=== PATIENT | female | born 1960 | race Caucasian/White ===

== ENCOUNTER 2019-06-03 14:17 | Emergency (ER) | payer OTHER ==
[2019-06-03 14:25] VITALS: RESP 18; TEMP 97.6
[2019-06-03] MEDS ORDERED: MORPHINE SULFATE 4 MG/ML SYRINGE IVP STA (14:48)
[2019-06-03] MEDS ORDERED: SODIUM CHLORIDE 0.9% 500 ML 500 ML IV ONE (14:48)
--- NOTE | 2019-06-03 14:57 | ED ---
Fall HPI - General Chief Complaint: Fall Stated Complaint: Fall Time Seen by Provider: 06/03/19 14:30 Source: patient Mode of arrival: ambulatory - History of Present Illness Initial Comments: 58-year-old female presenting today for chief complaint of fall. Patient states a week ago while moving she was carrying stuff down steps when she misstepped sliding down on her back she states she mostly his the back, flank right sided. Patient states it hurts with deep inspiration. Patient states she has brusising on her back. She stated th pain wraps around to the abdomen, making her feel bloated. Denies abdominal bruising. Denies pain in ribs prior to fall. Denies substernal or anterior chest pain. Patient admits to low back pain she doesn't loss bowel bladder control urinary retention she denies any numbness paresthesias of the lower extremities or weakness. Patient states she has been able to ambulate and walk she states most the pain has been in the right posterior ribs. She states she can order tolerate this pain. Patient denies any injury to head or neck she denies any headache visual changes nausea or vomiting. Patient denies any diarrhea melena or hematochezia. Patient denies hematuria dysuria urgency or frequency. Remaining review of system negative den ies any other areas of injury including the upper or lower extremities. Upon arrival patient is tearful stating she can no longer tolerate the pain - Related Data Allergies Allergy/AdvReac Type Severity Reaction Status Date / Time No Known Allergies Allergy Verified 06/03/19 14:25 Review of Systems ROS Statement: Those systems with pertinent positive or pertinent negative responses have been documented in the HPI. ROS Other: All systems not noted in ROS Statement are negative. Past Medical History Past Medical History: Cancer Additional Past Medical History / Comment(s): breast ca History of Any Multi-Drug Resistant Organisms: None Reported Past Surgical History: Orthopedic Surgery Additional Past Surgical History / Comment(s): masectomy rt, facial reconstruction Past Psychological History: No Psychological Hx Reported Smoking Status: Current every day smoker Past Alcohol Use History: None Reported Past Drug Use History: Marijuana General Exam - General Exam Comments Initial Comments: General: The patient is awake and alert, appears tearful Eye: Pupils are equal, round and reactive to light, extra-ocular movements are intact. No nystagmus. There is normal conjunctiva bilaterally. No signs of icterus. Ears, nose, mouth and throat: There are moist mucous membranes and no oral lesions. No raccoon no patel sign. Neck: The neck is supple, there is no tenderness or JVD. No midline tenderness to cervical spine. Cardiovascular: There is a regular rate and rhythm. No murmur, rub or gallop is appreciated. Respiratory: Lungs are clear to auscultation, respirations are non-labored, breath sounds are equal. No wheezes, stridor, rales, or rhonchi. Gastrointestinal: [Soft, non-distended, non-tender abdomen without masses or organomegaly noted. There is no rebound or guarding present. No CVA tenderness. Bowel sounds are unremarkable.] Musculoskeletal: Upon inspection of the back there is bruising near mid right side of trunk. There is pain to palpation of ribs under the area of bruising. There is no crepitus. Patient has no midline tenderness of the spine, mostly paravertebral. Normal ROM, no tenderness of the UE and LE b/l including shoulders/hips b/l. Strength 5/5 of the UE and LE b/l no weakness. Sensation intact of the UE and LE including the saddle region, no differences b/l. Radial and DP pulses equal bilaterally 2+. Neurological: A&O x 3. CN II-XII intact, There are no obvious motor or sensory deficits. Coordination appears grossly intact. Speech is normal. Skin: Skin is warm and dry and no rashes or lesions are noted. Psychiatric: Cooperative, appropriate mood & affect, normal judgment. Limitations: no limitations Course Vital Signs 06/03/19 14:22 Temperature 97.6 F Pulse Rate 97 Respiratory 18 Rate Blood Pressure 146/96 O2 Sat by Pulse 98 Oximetry Medical Decision Making - Medical Decision Making 58-year-old female presented for follow-up. Patient states she mostly struck her trunk and back. Imaging studies of the chest reveal no obvious lung abnormalities/rib fractures. Pt clinically appears to have rib contusion. Patient has no neurovascular deficits. She denies any injury to head or neck. Patient has no midline tenderness to patient of the spine. Mostly paravertebral. Patient is able to ambulate without difficulty. No history or PE findings consistent with cauda equina. Refused digital rectal exam. Patient pain controlled in ER. Discussed results, she is agreeable to discharge at this time with PCP f/u, provided inceptive spirometer. Discussed importance of return parameters. Pt discharged appearing well. - Lab Data Result diagrams: 06/03/19 15:06 06/03/19 15:06 Lab Results 06/03/19 06/03/19 06/03/19 Range/Units 15:06 15:06 15:06 WBC 7.0 (3.8-10.6) k/uL RBC 4.54 (3.80-5.40) m/uL Hgb 14.0 (11.4-16.0) gm/dL Hct 42.6 (34.0-46.0) % MCV 93.7 (80.0-100.0) fL MCH 30.8 (25.0-35.0) pg MCHC 32.9 (31.0-37.0) g/dL RDW 12.9 (11.5-15.5) % Plt Count 217 (150-450) k/uL Neutrophils % 59 % Lymphocytes % 32 % Monocytes % 5 % Eosinophils % 2 % Basophils % 0 % Neutrophils # 4.1 (1.3-7.7) k/uL Lymphocytes # 2.3 (1.0-4.8) k/uL Monocytes # 0.4 (0-1.0) k/uL Eosinophils # 0.1 (0-0.7) k/uL Basophils # 0.0 (0-0.2) k/uL PT 10.0 (9.0-12.0) sec INR 1.0 (<1.2) APTT 22.3 (22.0-30.0) sec Sodium 135 L (137-145) mmol/L Potassium 4.3 (3.5-5.1) mmol/L Chloride 100 (98-107) mmol/L Carbon Dioxide 28 (22-30) mmol/L Anion Gap 7 mmol/L BUN 14 (7-17) mg/dL Creatinine 0.75 (0.52-1.04) mg/dL Est GFR (CKD-EPI)AfAm >90 (>60 ml/min/1.73 sqM) Est GFR (CKD-EPI)NonAf 87 (>60 ml/min/1.73 sqM) Glucose 161 H (74-99) mg/dL Calcium 10.0 (8.4-10.2) mg/dL Total Bilirubin 0.3 (0.2-1.3) mg/dL AST 42 H (14-36) U/L ALT 37 H (4-34) U/L Alkaline Phosphatase 65 (38-126) U/L Total Protein 8.3 H (6.3-8.2) g/dL Albumin 4.7 (3.5-5.0) g/dL Disposition Clinical Impression: Fall, Rib pain, Bruised rib Disposition: HOME SELF-CARE Condition: Good Instructions (If sedation given, give patient instructions): Fall Prevention for Older Adults (ED), Rib Contusion (ED) Additional Instructions: Please use medication as discussed. Please follow-up with family doctor in the next 2 days.. Please return to emergency room if the symptoms increase or worsen or for any other concerns. Is patient prescribed a controlled substance at d/c from ED?: No Referrals: None,Stated [Primary Care Provider] - 1-2 days [facility] [NON-STAFF] - 1-2 days Time of Disposition: 16:30
[2019-06-03 15:14] LABS: Basophils % (A) 0 %; Eosinophils # (A) 0.1 k/uL (0-0.7); Eosinophils % (A) 2 %; HCT 42.6 % (34.0-46.0); Lymphocytes # (A) 2.3 k/uL (1.0-4.8); Lymphocytes % (A) 32 %; MCH 30.8 pg (25.0-35.0); MCHC 32.9 g/dL (31.0-37.0); MCV 93.7 fL (80.0-100.0); Mean Platelet Volume 7.3; Monocytes # (A) 0.4 k/uL (0-1.0); Monocytes % (A) 5 %; Neutrophils # (A) 4.1 k/uL (1.3-7.7); Neutrophils % (A) 59 %; Platelet Count 217 k/uL (150-450); RBC 4.54 m/uL (3.80-5.40); RDW 12.9 % (11.5-15.5)
[2019-06-03 15:18] LABS: ALT 37 U/L (4-34); AST 42 U/L (14-36); African American GFR (CKD) >90 (>60 ml/min/1.73 sqM); Albumin 4.7 g/dL (3.5-5.0); Alkaline Phosphatase 65 U/L (38-126); Anion Gap 7 mmol/L; Blood Urea Nitrogen 14 mg/dL (7-17); Carbon Dioxide 28 mmol/L (22-30); Chloride 100 mmol/L (98-107); Glucose 161 mg/dL (74-99); Non-African American GFR(CKD) 87 (>60 ml/min/1.73 sqM); Potassium 4.3 mmol/L (3.5-5.1); Sodium 135 mmol/L (137-145); Total Bilirubin 0.3 mg/dL (0.2-1.3); Total Protein 8.3 g/dL (6.3-8.2)
[2019-06-03 15:20] LABS: Partial Thromboplastin Time 22.3 sec (22.0-30.0)
--- NOTE | 2019-06-03 15:36 | XR ---
EXAMINATION TYPE: XR lumbar spine 2 or 3V DATE OF EXAM: 06/03/2019 COMPARISON: None HISTORY: Low back pain, fall TECHNIQUE: Three-view lumbar spine FINDINGS: There 5 lumbar-type vertebral bodies. Pedicles are intact. Disc heights are preserved. Spon dylosis is present. Vascular calcifications within the aorta. Vertebral body heights are preserved. Alignment is normal. IMPRESSION: 1. Mild spondylosis within the lumbar spine. 2. No acute osseous abnormality.
--- NOTE | 2019-06-03 15:56 | CT ---
EXAMINATION TYPE: CT ChestAbdPelvis w con DATE OF EXAM: 06/03/2019 INDICATION: Chest pain after fall injury x2 weeks ago COMPARISON: None CT DLP: 1061 mGycm CONTRAST: Performed without Oral Contrast and with IV Contrast, patient injected with 100 mL of Isovue 300. TECHNIQUE: Axial images at 5 mm thick sections. Reconstructed images in the coronal plane. Delayed images through the kidneys. FINDINGS: CT CHEST: Thoracic aorta appears unremarkable. No dissection or aneurysm is evident. No mediastinal f luid or pericardial effusions are evident. Portion of the thyroid visualized is normal. No suspicious lung nodules or focal infiltrates are present. No enlarged mediastinal or hilar adenopathy is evident. The ascending aorta diameter at the level of the main pulmonary artery is 3.1 cm. The main pulmonary artery diameter at the bifurcation is 2.4 cm. No displaced rib fractures are evident. No pneumothorax is evident. There is a left breast prosthesis . CT ABDOMEN: Liver: Normal Spleen: Normal Pancreas: Normal Adrenal glands: The adrenal glands are normal. Gallbladder: Normal Kidneys: No masses are evident. No hydronephrosis is present. No cysts are present. Delayed images were obtained through the kidneys, which remain unremarkable. Aorta: Vascular calcification is within the aorta. Inferior vena cava: Normal. CT PELVIS: Loops of bowel within the abdomen and pelvis are normal. Loops of bowel are evaluated without ora l contrast limiting their evaluation. Appendix: Normal as visualized. Urinary bladder: Normal. Genitourinary structures: Uterus is normal. Adnexal regions are normal. Osseous structures: No suspicious lytic or sclerotic lesions. Sacroiliac joint degenerative changes are present. Some mild facet degenerative changes present L5-S1 . No displaced fractures are evident. No suspicious compression deformities of the vertebral bodies w ithin the [id number] are evident. No free fluid is within the abdomen or pelvis. No pleural effusions are evident. IMPRESSIONS: 1. No suspicious acute or subacute posttraumatic change is evident.
[2019-06-03] MEDS ORDERED: ACET/COD 300 MG/30 MG STARTER PACK 6 TAB BTL PO STA (16:30)
[2019-06-03 16:44] VITALS: BP 116/72; PULSE 79
== END 2019-06-03 16:43 | disposition home or self-care (01) ==
LOC: EC 14:17
DX: S20.211A Contusion of right front wall of thorax, initial encounter (principal); F17.200 Nicotine dependence, unspecified, uncomplicated; Z85.3 Personal history of malignant neoplasm of breast; Z90.11 Acquired absence of right breast and nipple; W10.9XXA Fall (on) (from) unspecified stairs and steps, initial encounter; Y93.89 Activity, other specified
CPT/HCPCS: 36415; 80053; 85025; 85610; 85730; 72100; 71260; 74177; 99284; 96374; J2270; Q9967

== ENCOUNTER 2020-09-21 10:38 | Emergency (ER) | payer OTHER ==
[2020-09-21 10:42] VITALS: BP 155/82; PULSE 93; RESP 16; TEMP 97.9
--- NOTE | 2020-09-21 11:10 | XR ---
EXAMINATION TYPE: XR hand complete LT DATE OF EXAM: 09/21/2020 COMPARISON: None HISTORY: Injury, pain second and third metacarpal joints TECHNIQUE: 3 view left hand FINDINGS: No acute fracture or dislocation is evident. Joint spaces are preserved. Soft tissues have mild diffuse swelling along the dorsum of the hand. Follow up exams can be performed 7-10 days from acute trauma for continued pain. IMPRESSION: 1. No acute osseous abnormality left hand
[2020-09-21] MEDS: KETOROLAC 15 MG/ML 1 ML VIAL IM STA (11:18)
--- NOTE | 2020-09-21 11:26 | ED ---
Upper Extremity HPI - General Chief Complaint: Extremity Injury, Upper Stated Complaint: hand injury Time Seen by Provider: 09/21/20 10:44 Source: patient, RN notes reviewed Mode of arrival: ambulatory Limitations: no limitations - History of Present Illness Initial Comments: Patient is a 59-year-old female that presents to the emergency Department comp laining of left second and third finger pain. She notes that approximately a week ago she dropped out of her hand in the shoulder strap wrapped around her hand pulling on it. She notes that she thought the patient will go away with conservative management. She'll that she came in today to evaluate for any possible fractures. She was in minimal pain stating is proximal to 6 out of 10 with no relief. She denied any chest pain shortness breath headache nausea vomiting diarrhea constipation fever fatigue chills. - Related Data Previous Rx's Medication Instructions Recorded Ibuprofen [Motrin] 800 mg PO Q6HR #30 tab 09/21/20 Allergies Allergy/AdvReac Type Severity Reaction Status Date / Time No Known Allergies Allergy Verified 09/21/20 10:40 Review of Systems ROS Statement: Those systems with pertinent positive or pertinent negative responses have been documented in the HPI. ROS Other: All systems not noted in ROS Statement are negative. Past Medical History Past Medical History: Cancer Additional Past Medical History / Comment(s): breast ca History of Any Multi-Drug Resistant Organisms: None Reported Past Surgical History: Orthopedic Surgery Additional Past Surgical History / Comment(s): masectomy rt, facial reconstruction Past Psychological History: No Psychological Hx Reported Past Alcohol Use History: None Reported Past Drug Use History: Marijuana General Exam Limitations: no limitations General appearance: alert, in no apparent distress Head exam: Present: atraumatic, normocephalic, normal inspection Eye exam: Present: normal appearance, PERRL, EOMI. Absent: scleral icterus, conjunctival injection, periorbital swelling Neck exam: Present: normal inspection Respiratory exam: Present: normal lung sounds bilaterally. Absent: respiratory distress, wheezes, rales, rhonchi, stridor Cardiovascular Exam: Present: regular rate, normal rhythm, normal heart sounds. Absent: systolic murmur, diastolic murmur, rubs, gallop, clicks Extremities exam: Present: normal inspection, full ROM, tenderness (Over the left second and third metacarpophalangeal joints.), normal capillary refill. Absent: pedal edema, joint swelling, calf tenderness Neurological exam: Present: alert, oriented X3 Psychiatric exam: Present: normal affect, normal mood Skin exam: Present: warm, dry, intact, normal color. Absent: rash Course Vital Signs 09/21/20 10:40 Temperature 97.9 F Pulse Rate 93 Respiratory 16 Rate Blood Pressure 155/82 O2 Sat by Pulse 95 Oximetry Medical Decision Making - Medical Decision Making 59-year-old female complaining of left hand pain for the past 6 days after injuring it with a shoulder strap to the luggage bag. X-ray the left hand, 15 g Toradol ordered. X-ray negative for any acute osseous abnormality. Patient most likely has a left hand sprain Case discussed with Dr. Rodriguez, patient can discharge home with follow-up to primary care. - Radiology Data Radiology results: report reviewed, image reviewed X-ray left hand: No acute osseous abnormality seen. Disposition Clinical Impression: Sprain of finger Disposition: HOME SELF-CARE Condition: Stable Instructions (If sedation given, give patient instructions): Hand Sprain (ED) Additional Instructions: Please return to the Emergency Department if symptoms worsen or any other concerns. Follow-up primary care the next 1-2 days. Follow-up with orthopedist as needed. Take, Motrin as needed for pain. Is patient prescribed a controlled substance at d/c from ED?: No Referrals: None,Stated [Primary Care Provider] - 1-2 days Mendez Eagle DO [Doctor of Osteopathic Medicine] - 1-2 days Time of Disposition: 11:26
== END 2020-09-21 11:35 | disposition home or self-care (01) ==
LOC: EC 10:38
DX: S63.653A Sprain of metacarpophalangeal joint of left middle finger, initial encounter (principal); S63.651A Sprain of metacarpophalangeal joint of left index finger, initial encounter; F12.90 Cannabis use, unspecified, uncomplicated; Z85.3 Personal history of malignant neoplasm of breast; W20.8XXA Other cause of strike by thrown, projected or falling object, initial encounter
CPT/HCPCS: 73130; 99283; 96372; J1885

== ENCOUNTER 2022-02-24 15:37 | Inpatient (IN) | payer OTHER ==
[2022-02-24] MEDS ORDERED: NITROGLYCERIN OINT 1 INCH/GM PACKET TOPICAL STA (15:55)
--- NOTE | 2022-02-24 16:03 | ED ---
General Adult HPI - General Chief complaint: Chest Pain Stated complaint: chest pain Time Seen by Provider: 02/24/22 15:40 Source: patient, EMS, RN notes reviewed, old records reviewed Mode of arrival: EMS - History of Present Illness Initial comments: This is a 61-year-old female presents emergency department via ambulance. Patient comes in because about an hour and 15 minutes prior to arrival she started having severe chest pain radiated down her arm and she became very short of breath. Patient states it lasts about 45 minutes and then subsided. Patient denies any diaphoretic episodes. Patient denies any nausea. Patient denies any near syncopal episode or lightheadedness. Patient denies any headache patient denies numbness weakness. Patient denies any high blood pressure or high cholesterol or diabetes history. Patient states she is a heavy smoker. Patient denies family history of heart disease as well. Patient denies any abdominal pain patient denies any back pain. Patient has a swollen to the legs or calf tenderness. - Related Data Home Medications Medication Instructions Recorded Confirmed No Known Home Medications 02/24/22 02/24/22 Allergies Allergy/AdvReac Type Severity Reaction Status Date / Time No Known Allergies Allergy Verified 02/24/22 16:34 Review of Systems ROS Statement: Those systems with pertinent positive or pertinent negative responses have been documented in the HPI. ROS Other: All systems not noted in ROS Statement are negative. Past Medical History Past Medical History: Cancer Additional Past Medical History / Comment(s): breast ca History of Any Multi-Drug Resistant Organisms: None Reported Past Surgical History: Orthopedic Surgery Additional Past Surgical History / Comment(s): masectomy rt, facial reconstruction Past Psychological History: Anxiety, Depression, PTSD Smoking Status: Current every day smoker Past Alcohol Use History: None Reported Past Drug Use History: Marijuana General Exam - General Exam Comments Initial Comments: GENERAL: Patient is well-developed and well-nourished. Patient is nontoxic and well- hydrated and is in mild distress. ENT: Neck is soft and supple. No significant lymphadenopathy is noted. Oropharynx is clear. Moist mucous membranes. Neck has full range of motion without eliciting any pain. EYES: The sclera were anicteric and conjunctiva were pink and moist. Extraocular movements were intact and pupils were equal round and reactive to light. Eyelids were unremarkable. PULMONARY: Unlabored respirations. Good breath sounds bilaterally. No audible rales rhonchi or wheezing was noted. CARDIOVASCULAR: There is a regular rate and rhythm without any murmurs gallops or rubs. ABDOMEN: Soft and nontender with normal bowel sounds. SKIN: Skin is clear with no lesions or rashes and otherwise unremarkable. NEUROLOGIC: Patient is alert and oriented x3. Cranial nerves II through XII are grossly intact. Motor and sensory are also intact. Normal speech, volume and content. Symmetrical smile. MUSCULOSKELETAL: Normal extremities with adequate strength and full range of motion. LYMPHATICS: No significant lymphadenopathy is noted PSYCHIATRIC: Normal psychiatric evaluation. Course Vital Signs 02/24/22 02/24/22 15:40 19:29 Temperature 98.0 F Pulse Rate 108 H 101 H Respiratory 16 18 Rate Blood Pressure 140/73 131/92 O2 Sat by Pulse 97 96 Oximetry Medical Decision Making - Medical Decision Making EKG was interpreted by myself. EKG shows sinus tachycardia at 108 bpm MD inte rval 129 QRSs 85 QT interval 04/18/1969 QTC is 400. Patient's EKG shows no ST segment elevation or depression. Was pt. sent in by a medical professional or institution (, PA, PIPE MAKER, urgent care, hospital, or long term...) When possible be specific @ -No Did you speak to anyone other than the patient for history (EMS, parent, family, police, friend...)? What history was obtained from this source @ -EMS gave an initial portion of the history Did you review nursing and triage notes (agree or disagree)? Why? @ -I reviewed and agree with nursing and triage notes Were old charts reviewed (outside hosp., previous admission, EMS record, old EKG, old radiological studies, urgent care reports/EKG's, long term records)? Report findings @ -I reviewed patient's old x-rays EKGs and labs Differential Diagnosis (chest pain, altered mental status, abdominal pain women, abdominal pain men, vaginal bleeding, weakness, fever, dyspnea, syncope, headache, dizziness, GI bleed, back pain, seizure, CVA, palpatations, mental h ealth)? @ -Differential Chest Pain: Stable Angina, Unstable Angina, STEMI, NSTEMI Aortic Dissection, Pneumothorax, Musculoskeletal, Esophageal Spasm GERD, Cholecystitis, Pancreatitis, Zoster, this is not meant to be an all-inclusive list. EKG interpreted by me (3pts min.). @ -As above X-rays interpreted by me (1pt min.). @ -Chest x-ray was interpreted by myself and showed no acute normalities CT interpreted by me (1pt min.). @ -None done U/S interpreted by me (1pt. min.). @ -None done What testing was considered but not performed or refused? (CT, X-rays, U/S, labs)? Why? @ -None What meds were considered but not given or refused? Why? @ -Heparin was considered however CAT scan of the chest showed no pulmonary embolism. Did you discuss the management of the patient with other professionals (professionals i.e. , PA, PIPE MAKER, lab, RT, psych nurse, social media community manager, environmental lawyer, teacher, military police officer, manager case)? Give summary @ -[facility] admitted the patient wrote admitting orders Was smoking cessation discussed for >3mins.? @ -I discussed smoking cessation for greater than 3 minutes. The risk of smoking were discussed with the patient including but not limited to risks of cancer, stroke, coronary artery disease and COPD. Also discussed with patient were multiple methods of quitting smoking. Lastly we discussed the financial cost of smoking. Was critical care preformed (if so, how long)? @ -No Were there social determinants of health that impacted care today? How? (Homelessness, low income, unemployed, alcoholism, drug addiction, transportation, low edu. Level, literacy, decrease access to med. care, fpc, rehab)? @ -No Was there de-escalation of care discussed even if they declined (Discuss DNR or withdrawal of care, Hospice)? DNR status @ -No What co-morbidities impacted this encounter? (DM, HTN, Smoking, COPD, CAD, Cancer, CVA, ARF, Chemo, Hep., AIDS, mental health diagnosis, sleep apnea, morbid obesity)? @ -Smoking, Was patient admitted / discharged? Hospital course, mention meds given and r oute, prescriptions, significant lab abnormalities, going to OR and other pertinent info. @ -Patient will be admitted for chest pain. [facility]. Patient received aspirin and nitro continuously present and patient. I will consult cardiology Undiagnosed new problem with uncertain prognosis? @ -No Drug Therapy requiring intensive monitoring for toxicity (Heparin, Nitro, Insulin, Cardizem)? @ -No Were any procedures done? @ -No Diagnosis/symptom? @ -Chest pain Acute, or Chronic, or Acute on Chronic? @ -Acute Uncomplicated (without systemic symptoms) or Complicated (systemic symptoms)? @ -Complicated Side effects of treatment? @ -No Exacerbation, Progression, or Severe Exacerbation? @ -No Poses a threat to life or bodily function? How? (Chest pain, [place], [place], pneumonia, PE, COPD, DKA, ARF, appy, cholecystitis, CVA, Diverticulitis, Homicidal, Suicidal, threat to staff... and all critical care pts) @ -No Diagnosis/symptom? @ -Anxiety Acute, or Chronic, or Acute on Chronic? @ -Acute on chronic Uncomplicated (without systemic symptoms) or Complicated (systemic symptoms)? @ -default Side effects of treatment? @ -none Exacerbation, Progression, or Severe Exacerbation] @ -no Poses a threat to life or bodily function? @ -no - Lab Data Result diagrams: 02/24/22 16:05 02/24/22 16:05 Lab Results 02/24/22 02/24/22 02/24/22 Range/Units 16:05 16:05 16:05 WBC 6.5 (3.8-10.6) k/uL RBC 4.38 (3.80-5.40) m/uL Hgb 14.3 (11.4-16.0) gm/dL Hct 41.8 (34.0-46.0) % MCV 95.4 (80.0-100.0) fL MCH 32.6 (25.0-35.0) pg MCHC 34.1 (31.0-37.0) g/dL RDW 13.1 (11.5-15.5) % Plt Count 149 L (150-450) k/uL MPV 8.3 Neutrophils % 61 % Lymphocytes % 29 % Monocytes % 5 % Eosinophils % 2 % Basophils % 1 % Neutrophils # 4.0 (1.3-7.7) k/uL Lymphocytes # 1.9 (1.0-4.8) k/uL Monocytes # 0.3 (0-1.0) k/uL Eosinophils # 0.1 (0-0.7) k/uL Basophils # 0.1 (0-0.2) k/uL PT 10.4 (9.0-12.0) sec INR 1.0 (<1.2) APTT 18.1 L (22.0-30.0) sec D-Dimer 1.11 H (<0.60) mg/L FEU Sodium 136 L (137-145) mmol/L Potassium 4.3 (3.5-5.1) mmol/L Chloride 103 (98-107) mmol/L Carbon Dioxide 28 (22-30) mmol/L Anion Gap 5 mmol/L BUN 11 (7-17) mg/dL Creatinine 0.63 (0.52-1.04) mg/dL Est GFR (CKD-EPI)AfAm >90 (>60 ml/min/1.73 sqM) Est GFR (CKD-EPI)NonAf >90 (>60 ml/min/1.73 sqM) Glucose 161 H (74-99) mg/dL Calcium 9.3 (8.4-10.2) mg/dL Magnesium 1.5 L (1.6-2.3) mg/dL Total Bilirubin 0.6 (0.2-1.3) mg/dL AST 120 H (14-36) U/L ALT 108 H (4-34) U/L Alkaline Phosphatase 65 (38-126) U/L Troponin I (0.000-0.034) ng/mL Total Protein 7.4 (6.3-8.2) g/dL Albumin 4.0 (3.5-5.0) g/dL 02/24/22 Range/Units 16:05 WBC (3.8-10.6) k/uL RBC (3.80-5.40) m/uL Hgb (11.4-16.0) gm/dL Hct (34.0-46.0) % MCV (80.0-100.0) fL MCH (25.0-35.0) pg MCHC (31.0-37.0) g/dL RDW (11.5-15.5) % Plt Count (150-450) k/uL MPV Neutrophils % % Lymphocytes % % Monocytes % % Eosinophils % % Basophils % % Neutrophils # (1.3-7.7) k/uL Lymphocytes # (1.0-4.8) k/uL Monocytes # (0-1.0) k/uL Eosinophils # (0-0.7) k/uL Basophils # (0-0.2) k/uL PT (9.0-12.0) sec INR (<1.2) APTT (22.0-30.0) sec D-Dimer (<0.60) mg/L FEU Sodium (137-145) mmol/L Potassium (3.5-5.1) mmol/L Chloride (98-107) mmol/L Carbon Dioxide (22-30) mmol/L Anion Gap mmol/L BUN (7-17) mg/dL Creatinine (0.52-1.04) mg/dL Est GFR (CKD-EPI)AfAm (>60 ml/min/1.73 sqM) Est GFR (CKD-EPI)NonAf (>60 ml/min/1.73 sqM) Glucose (74-99) mg/dL Calcium (8.4-10.2) mg/dL Magnesium (1.6-2.3) mg/dL Total Bilirubin (0.2-1.3) mg/dL AST (14-36) U/L ALT (4-34) U/L Alkaline Phosphatase (38-126) U/L Troponin I <0.012 (0.000-0.034) ng/mL Total Protein (6.3-8.2) g/dL Albumin (3.5-5.0) g/dL Disposition Clinical Impression: Chest pain Disposition: ADMITTED IP TO THIS [facility] Referrals: None,Stated [Primary Care Provider] - 1-2 days Time of Disposition: 19:47
[2022-02-24 16:19] LABS: Basophils # (A) 0.1 k/uL (0-0.2); Basophils % (A) 1 %; Eosinophils # (A) 0.1 k/uL (0-0.7); Eosinophils % (A) 2 %; HCT 41.8 % (34.0-46.0); HGB 14.3 gm/dL (11.4-16.0); Lymphocytes # (A) 1.9 k/uL (1.0-4.8); Lymphocytes % (A) 29 %; MCH 32.6 pg (25.0-35.0); MCHC 34.1 g/dL (31.0-37.0); MCV 95.4 fL (80.0-100.0); Mean Platelet Volume 8.3; Monocytes # (A) 0.3 k/uL (0-1.0); Monocytes % (A) 5 %; Neutrophils % (A) 61 %; Platelet Count 149 k/uL (150-450); RBC 4.38 m/uL (3.80-5.40); RDW 13.1 % (11.5-15.5); WBC 6.5 k/uL (3.8-10.6)
[2022-02-24 16:47] LABS: ALT 108 U/L (4-34); AST 120 U/L (14-36); African American GFR (CKD) >90 (>60 ml/min/1.73 sqM); Alkaline Phosphatase 65 U/L (38-126); Anion Gap 5 mmol/L; Blood Urea Nitrogen 11 mg/dL (7-17); Calcium 9.3 mg/dL (8.4-10.2); Carbon Dioxide 28 mmol/L (22-30); Chloride 103 mmol/L (98-107); Glucose 161 mg/dL (74-99); Magnesium 1.5 mg/dL (1.6-2.3); Non-African American GFR(CKD) >90 (>60 ml/min/1.73 sqM); Potassium 4.3 mmol/L (3.5-5.1); Sodium 136 mmol/L (137-145); Total Bilirubin 0.6 mg/dL (0.2-1.3); Total Protein 7.4 g/dL (6.3-8.2)
--- NOTE | 2022-02-24 16:51 | XR ---
EXAMINATION TYPE: XR chest 2V DATE OF EXAM: 02/24/2022 COMPARISON: NONE HISTORY: Chest pain TECHNIQUE: 2 views FINDINGS: Heart is normal. Lungs are clear. Diaphragm is normal. Bony thorax is intact. IMPRESSION: Normal chest.
[2022-02-24 16:55] LABS: Prothrombin Time 10.4 sec (9.0-12.0)
[2022-02-24 16:58] LABS: Partial Thromboplastin Time 18.1 sec (22.0-30.0)
--- NOTE | 2022-02-24 17:35 | CT ---
EXAMINATION TYPE: CT chest angio for PE DATE OF EXAM: 02/24/2022 COMPARISON: 06/03/2019 HISTORY: Chest pain, tachycardia, elevated d-dimer CT DLP: 533.5 mGycm Automated exposure control for dose reduction was used. CONTRAST: Performed with IV Contrast, patient injected with 78ml mL of Isovue 370. Images obtained from the thoracic inlet to the diaphragm with the IV contrast. There are Three-D postprocessed images. There is a right breast implant. The lungs are clear of consolidation. There is no mediastinal adenop athy. Thoracic aorta is intact. No aneurysm or dissection. There is normal contrast opacification of the pulmonary arteries. No filling defect. The thoracic spine is intact. No compression fracture. Sternum is intact. Upper abdominal soft tissue s are intact. IMPRESSION: No evidence of pulmonary embolism. No suspicious pulmonary mass. Lungs are clear of infiltrate. Heart and lungs not significantly different than only exam.
[2022-02-24] MEDS ORDERED: MAGNESIUM SULFATE-D5W PMX 1 GM in DEXTROSE/WATER 1 100ML.BAG IVPB ONE (18:53)
[2022-02-24] MEDS ORDERED: LORazepam 2 MG/ML INJ IV STA (19:12)
[2022-02-24] MEDS ORDERED: NITROGLYCERIN SL TABS 0.4 MG TAB SUBLINGUAL PRN (19:51)
[2022-02-25] MEDS: NITROGLYCERIN OINT 1 INCH/GM PACKET TOPICAL SCH ×3 (00:32→12:53)
--- NOTE | 2022-02-25 07:45 | P.HPIM ---
History of Present Illness This is a pleasant 61 years old female with past medical history of anxiety, depression, PTSD, nicotine dependence presents because of chest pain of one-day duration, Centrum, nonradiating about 6 moderate in severity as patient described, chest pain is pretty much gone now and patient rated as 0/10. Patient denies any other complaints, no dyspnea or coughing. No GI or urinary symptoms, no vomiting diarrhea or dysuria. No headache dizziness weakness or numbness. Gait is normal for the patient. Patient denies right upper quadrant pain or tenderness, no vomiting. No shoulder pain. No leg pain or swelling, clinically the suspicion for DVT is very low She is a smoker, down to 7-8 cigarettes per day as patient describes, she plans to quit but she declines nicotine patch. She used to drink but not lately the last week. No illicit drugs. Patient states that she does not have PCP. Patient was counseled to call health insurance provider to find nearby PCP and she agrees. Patient informed she needs to follow up regarding her liver enzymes CT of the chest: No pulmonary embolism, no infiltrate Review of Systems Review of systems CONSTITUTIONAL: No fever, no malaise, no fatigue. HEENT: No recent visual problems or hearing problems. Denied any sore throat. CARDIOVASCULAR: No orthopnea, PND, no palpitations, no syncope. PULMONARY: No shortness of breath, no cough, no hemoptysis. GASTROINTESTINAL: No diarrhea, no nausea, no vomiting, no abdominal pain. Normoactive bowel sounds. NEUROLOGICAL: No headaches, no weakness, no numbness. HEMATOLOGICAL: Denies any bleeding or petechiae. GENITOURINARY: Denies any burning micturition, frequency, or urgency. MUSCULOSKELETAL/RHEUMATOLOGICAL: Denies any joint pain, swelling, or any muscle pain. ENDOCRINE: Denies any polyuria or polydipsia. Past Medical History Past Medical History: Cancer Additional Past Medical History / Comment(s): breast ca History of Any Multi-Drug Resistant Organisms: None Reported Past Surgical History: Orthopedic Surgery Additional Past Surgical History / Comment(s): masectomy rt, facial reconstruction Past Anesthesia/Blood Transfusion Reactions: No Reported Reaction Past Psychological History: Anxiety, Depression, PTSD Smoking Status: Current every day smoker Past Alcohol Use History: None Reported Past Drug Use History: Marijuana - Past Family History Mother Family Medical History: No Reported History Medications and Allergies Home Medications Medication Instructions Recorded Confirmed Type No Known Home Medications 02/24/22 02/24/22 History Allergies Allergy/AdvReac Type Severity Reaction Status Date / Time No Known Allergies Allergy Verified 02/24/22 16:34 Physical Exam Vitals: Vital Signs Temp Pulse Resp BP Pulse Ox 02/25/22 07:18 93 L 02/25/22 05:18 72 16 106/60 93 L 02/25/22 00:32 96 16 122/72 96 02/24/22 19:29 101 H 18 131/92 96 02/24/22 15:40 98.0 F 108 H 16 140/73 97 Intake and Output 02/24/22 02/25/22 02/25/22 22:59 06:59 14:59 Other: Weight 81.647 kg GENERAL: The patient is alert and oriented x3, not in any acute distress. Well developed, well nourished. HEENT: Pupils are round and equally reacting to light. EOMI. No scleral icterus. No conjunctival pallor. Normocephalic, atraumatic. No pharyngeal erythema. No thyromegaly. CARDIOVASCULAR: S1 and S2 present. No murmurs, rubs, or gallops. PULMONARY: Chest is clear to auscultation, no wheezing or crackles. ABDOMEN: Soft, nontender, nondistended, normoactive bowel sounds. No palpable organomegaly. MUSCULOSKELETAL: No joint swelling or deformity. EXTREMITIES: No cyanosis, clubbing, or pedal edema. NEUROLOGICAL: Gross neurological examination did not reveal any focal deficits. SKIN: No rashes. no petechiae. Results CBC & Chem 7: 02/24/22 16:05 02/24/22 16:05 Labs: Abnormal Lab Results - Last 24 Hours (Table) 02/24/22 02/24/22 02/24/22 Range/Units 16:05 16:05 16:05 Plt Count 149 L (150-450) k/uL APTT 18.1 L (22.0-30.0) sec D-Dimer 1.11 H (<0.60) mg/L FEU Sodium 136 L (137-145) mmol/L Glucose 161 H (74-99) mg/dL Magnesium 1.5 L (1.6-2.3) mg/dL AST 120 H (14-36) U/L ALT 108 H (4-34) U/L Assessment and Plan Assessment: Chest pain, rule out coronary causes. CTA of the chest negative for PE. chest pain improved currently Activated d-dimer with negative CTPA for PE Nicotine dependence Transaminitis Hyperglycemia, check for diabetes mellitus Mild hyperglycemia Anxiety, depression PTSD, not in active tissue Plan: Continue with aspirin Echocardiogram Cardiology consult Labs and medication were reviewed.. Continue same treatment. Continue with symptomatic treatment. Resume home medication. Monitor lytes and vitals. DVT and GI prophylaxis. Further recommendations as per clinical course of the patient DVT prophylaxis: Subcutaneous heparin GI Prophylaxis: Pepcid PT/OT: Pending Prognosis is guarded
[2022-02-25 07:53] VITALS: RESP 18; TEMP 97.6
[2022-02-25] MEDS ORDERED: FAMOTIDINE 20 MG/2 ML VIAL IV SCH (09:00)
[2022-02-25] MEDS ORDERED: HEPARIN SODIUM,PORCINE/PF 5,000 UNIT/0.5 ML SYRINGE SQ SCH (09:00)
[2022-02-25] MEDS ORDERED: ASPIRIN 325 MG TAB PO SCH (09:00)
[2022-02-25] MEDS ORDERED: METOPROLOL TARTRATE 12.5 MG TAB PO SCH (09:45)
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
[2022-02-25 11:23] LABS: Chol/HDL Ratio 4.78 Ratio; LDL Cholesterol,Calculated 122.8 mg/dL (0.0-131.0)
[2022-02-25 11:24] LABS: Albumin 3.6 g/dL (3.8-4.9); Albumin/Globulin Ratio 1.38 (1.60-3.17); Bilirubin, Conjugated 0.22 mg/dL (0.20-0.40); Bilirubin,Unconjugated 0.48 mg/dL (0.20-1.00); Globulin 2.6 g/dL (1.6-3.3); Magnesium 1.8 mg/dL (1.5-2.4); Total Bilirubin 0.7 mg/dL (0.30-1.20); Total Protein 6.2 g/dL (6.2-8.2)
[2022-02-25] MEDS ORDERED: ALPRAZolam 0.5 MG TAB PO PRN (13:09)
[2022-02-25 14:39] VITALS: BP 154/87; PULSE 70
--- NOTE | 2022-02-26 07:08 | CA ---
Transthoracic Echo Report Name: Alicja Hancock Age: 61 Gender: F : 1960 Exam Date: 02/25/2022 13:57 Exam Location: [place] [facility] Ht (in): 64 Wt (lb): 180 Ordering Physician: Carmen Cullen Attending/Referring Phys: [id number], Alyse Staff Development Educator Shahida Amaya, JUHI Procedure CPT: Indications: LVF Cardiac Hx: Technical Quality: Contrast 1: Total Dose (mL): Contrast 2: Total Dose (mL): MEASUREMENTS (Male / Female) Normal Values 2D ECHO LV Diastolic Diameter PLAX 4.8 cm 4.2 - 5.9 / 3.9 - 5.3 cm LV Systolic Diameter PLAX 3.2 cm IVS Diastolic Thickness 0.8 cm 0.6 - 1.0 / 0.6 - 0.9 cm LVPW Diastolic Thickness 0.9 cm 0.6 - 1.0 / 0.6 - 0.9 cm LV Relative Wall Thickness 0.3 RV Internal Dim ED PLAX 3.4 cm LA Systolic Diameter LX 3.3 cm 3.0 - 4.0 / 2.7 - 3.8 cm M-MODE Aortic Root Diameter MM 2.7 cm LA Systolic Diameter MM 3.4 cm LA Ao Ratio MM 1.3 MV E Point Septal Separation 0.3 cm AV Cusp Separation MM 1.7 cm DOPPLER MV Area PHT 3.2 cm??? Mitral E Point Velocity 50.1 cm/s Mitral A Point Velocity 83.6 cm/s Mitral E to A Ratio 0.6 MV Deceleration Time 240.3 ms MV E' Velocity 5.8 cm/s Mitral E to MV E' Ratio 8.6 FINDINGS Left Ventricle Normal left ventricular size, wall thickness, systolic function with no obvious regional wall motion abnormalities. Left ventricular ejection fraction is estimated at 55%. Right Ventricle The right ventricle is normal in size and function. Right Atrium The right atrium is normal in size. Left Atrium The left atrium is normal in size. Mitral Valve Structurally normal mitral valve without significant stenosis or prolapse. There is mild mitral regurgitation. Aortic Valve Structurally normal aortic valve without significant sclerosis or stenosis. There is no aortic regurgitation. Tricuspid Valve Structurally normal tricuspid valve without significant stenosis. Pulmonary artery systolic pressure is normal. Pulmonic Valve Structurally normal pulmonic valve without significant stenosis. There is no pulmonic regurgitation. Pericardium Normal pericardium without effusion. Aorta Normal aortic root dimension. CONCLUSIONS Normal LV size and systolic function. There is minimal mitral and tricuspid insufficiency no significant pulmonary hypertension. No pericardial effusion Previewed by: Dr. Aranza Bhatti MD (Electronically Signed) Final Date: 26 February 2022 07:07
== END 2022-02-25 14:39 | disposition home or self-care (01) | DRG 313 ==
LOC: EC 15:37 → 6NMEDSUR 19:51
PROVIDERS: ADMIT Hospitalist; ATTEND Hospitalist
DX: R07.9 Chest pain, unspecified (principal); R74.01 Elevation of levels of liver transaminase levels; F17.210 Nicotine dependence, cigarettes, uncomplicated; I10 Essential (primary) hypertension; F43.10 Post-traumatic stress disorder, unspecified; F32.A Depression, unspecified; F41.0 Panic disorder [episodic paroxysmal anxiety]; Z71.6 Tobacco abuse counseling; Z85.3 Personal history of malignant neoplasm of breast; Z96.651 Presence of right artificial knee joint
CPT/HCPCS: 36415; 71046; 71275; 80053; 80061; 80076; 83735; 84443; 84484; 85025; 85379; 85610; 85730; 93005; 93306; 96365; 96375; 99285

== ENCOUNTER 2023-01-25 16:13 | Emergency (ER) | payer OTHER ==
--- NOTE | 2023-01-25 18:12 | ED ---
Abdominal Pain HPI - General Source: patient, RN notes reviewed Mode of arrival: ambulatory Limitations: no limitations <Tanya Rosen - Last Filed: 01/25/23 18:11> - History of Present Illness MD Complaint: abdominal pain -: month(s) Location: diffuse Radiation: none Migration to: no migration Severity: moderate Quality: aching Consistency: constant Improves With: nothing Worsens With: nothing Associated Symptoms: other (During) <Mohan Acharya - Last Filed: 02/03/23 07:31> - General Chief Complaint: Abdominal Pain Stated Complaint: abd pain Time Seen by Provider: 01/25/23 18:11 - History of Present Illness Initial Comments: Patient is 62-year-old female presenting to the ER chief complaint abdominal distention. Patient reports this has been going on for a couple of weeks. Patient denies any fevers or chills. Patient states she has minimal bowel movements and flatulence. (Tanya Rosen) Patient is a 62-year-old woman who presents with complaints of having diffuse abdominal pain, a feeling of bloating, that is been going on for she states probably a couple of months contrary to the quick note. The patient states she does not have a physician [place] and has not found a primary care doctor. She states that she has not noticed worsening or relieving factors. She states she occasionally has some mucus with bowel movements but not constantly. Today she noticed there was a trace of blood in her urine. No systemic symptoms. No fever or chills. No chest pain cough, dyspnea. No weight loss. (Mohan Acharya) - Related Data Previous Rx's Medication Instructions Recorded ALPRAZolam [Xanax] 0.5 mg PO BID PRN 3 Days #6 tablet 02/25/22 Metoprolol Tartrate [Lopressor] 12.5 mg PO TID 90 Days #60 tablet 02/25/22 Famotidine [Pepcid] 20 mg PO BID #14 tablet 01/26/23 Allergies Allergy/AdvReac Type Severity Reaction Status Date / Time No Known Allergies Allergy Verified 01/25/23 16:36 Review of Systems ROS Other: All systems not noted in ROS Statement are negative. <Tanya Rosen - Last Filed: 01/25/23 18:11> ROS Other: All systems not noted in ROS Statement are negative. Constitutional: Denies: fever, chills Respiratory: Denies: cough, dyspnea Cardiovascular: Denies: chest pain, palpitations, orthopnea, edema Gastrointestinal: Reports: abdominal pain, nausea. Denies: vomiting, diarrhea, melena Genitourinary: Reports: hematuria. Denies: dysuria, frequency Musculoskeletal: Denies: back pain Skin: Denies: rash Neurological: Denies: headache, weakness, numbness <Mohan Acharya - Last Filed: 02/03/23 07:31> ROS Statement: Those systems with pertinent positive or pertinent negative responses have been documented in the HPI. Past Medical History Past Medical History: Cancer Additional Past Medical History / Comment(s): breast ca History of Any Multi-Drug Resistant Organisms: None Reported Past Surgical History: Orthopedic Surgery Additional Past Surgical History / Comment(s): masectomy rt, facial reconstruction Past Anesthesia/Blood Transfusion Reactions: No Reported Reaction Past Psychological History: Anxiety, Depression, PTSD Smoking Status: Current every day smoker Past Alcohol Use History: Heavy Past Drug Use History: Marijuana - Past Family History Mother Family Medical History: No Reported History <Tanya Rosen - Last Filed: 01/25/23 18:11> General Exam Limitations: no limitations <Tanya Rosen - Last Filed: 01/25/23 18:11> General appearance: alert, in no apparent distress Head exam: Present: atraumatic, normocephalic Eye exam: Present: normal appearance. Absent: scleral icterus, conjunctival injection ENT exam: Present: normal oropharynx Neck exam: Present: normal inspection Respiratory exam: Present: normal lung sounds bilaterally. Absent: respiratory distress, wheezes, rales, rhonchi, stridor Cardiovascular Exam: Present: regular rate, normal rhythm, normal heart sounds. Absent: systolic murmur, diastolic murmur, rubs, gallop GI/Abdominal exam: Present: soft. Absent: distended, tenderness, guarding, rebound, rigid, mass, pulsatile mass Extremities exam: Present: normal inspection, normal capillary refill. Absent: pedal edema, calf tenderness Back exam: Present: normal inspection. Absent: CVA tenderness (R), CVA tenderness (L) Neurological exam: Present: alert Skin exam: Present: warm, dry, intact, normal color. Absent: rash <Mohan Acharya - Last Filed: 02/03/23 07:31> - General Exam Comments Initial Comments: Visual Physical Exam Vital signs reviewed General: Well-appearing, nontoxic, no acute distress. Head: Normocephalic, atraumatic Eyes: PERRLA, EOMI ENT: Airway patent Chest: Nonlabored breathing Skin: No visual rash, normal skin tone Neuro: Alert and oriented 3 Musculoskeletal: No gross abnormalities (Tanya Rosen) Course Vital Signs 01/25/23 01/25/23 01/26/23 16:32 22:20 01:40 Temperature 98.2 F 98.0 F Pulse Rate 104 H 101 H 72 Respiratory 20 20 18 Rate Blood Pressure 166/82 144/96 144/95 O2 Sat by Pulse 98 98 97 Oximetry Medical Decision Making <Tanya Rosen - Last Filed: 01/25/23 18:11> - Lab Data Result diagrams: 01/25/23 18:32 01/25/23 18:32 <Mohan Acharya - Last Filed: 02/03/23 07:31> - Medical Decision Making I performed the quick note portion of the exam. Electronically signed by Tanya Rosen PA-C (Tanya Rosen) The patient had computed tomography scan of the abdomen and pelvis which I interpreted as negative for obstruction, free air or acute surgical condition Was pt. sent in by a medical professional or institution ([facility], BROADCAST JOURNALIST, urgent care, hospital, or long term...) When possible be specific @ -[No] Did you speak to anyone other than the patient for history (EMS, parent, family, police, friend...)? What history was obtained from this source @ -[No] Did you review nursing and triage notes (agree or disagree)? Why? @ -[I reviewed and agree with nursing and triage notes] Were old charts reviewed (outside hosp., previous admission, EMS record, old EKG, old radiological studies, urgent care reports/EKG's, long term records)? Report findings @ -[No old charts were reviewed] Differential Diagnosis (chest pain, altered mental status, abdominal pain women, abdominal pain men, vaginal bleeding, weakness, fever, dyspnea, syncope, headache, dizziness, GI bleed, back pain, seizure, CVA, palpatations, mental health, musculoskeletal)? @ -[Differential Abdominal Pain Women: Appendicitis, Cholecystitis, diverticulosis, ischemic bowel, pancreatitis, hepatitis, UTI, gastroenteritis, AAA, incarcerated hernia, bowel obstruction, constipation, inflammatory bowel, hepatitis, peptic ulcer disease, splenic inf arction, perforated viscus, vulvitis, ovarian torsion, PID, kidney stone, placenta abruption, this is not meant to be an all-inclusive list EKG interpreted by me (3pts min.). @ -[As above] X-rays interpreted by me (1pt min.). @ -[None done] CT interpreted by me (1pt min.). @ -[I interpreted as above U/S interpreted by me (1pt. min.). @ -[None done] What testing was considered but not performed or refused? (CT, X-rays, U/S, lab s)? Why? @ -[None] What meds were considered but not given or refused? Why? @ -[None] Did you discuss the management of the patient with other professionals (professionals i.e. , PA, BROADCAST JOURNALIST, lab, RT, psych nurse, family welfare social work professor, help desk analyst, teacher, staff weapons officer, manager case)? Give summary @ -[No] Was smoking cessation discussed for >3mins.? @ -[No] Was critical care preformed (if so, how long)? @ -[No] Were there social determinants of health that impacted care today? How? (Homelessness, low income, unemployed, alcoholism, drug addiction, transportation, low edu. Level, literacy, decrease access to med. care, longterm, rehab)? @ -[No] Was there de-escalation of care discussed even if they declined (Discuss DNR or withdrawal of care, Hospice)? DNR status @ -[No] What co-morbidities impacted this encounter? (DM, HTN, Smoking, COPD, CAD, Cancer, CVA, ARF, Chemo, Hep., AIDS, mental health diagnosis, sleep apnea, morbid obesity)? @ -[None] Was patient admitted / discharged? Hospital course, mention meds given and route, prescriptions, significant lab abnormalities, going to OR and other per tinent info. @ -[Patient is 62-year-old woman presenting to have evaluation of abdominal pain. She has had episodes of this going back some months. The workup here does not reveal definite etiology, and we discussed appropriate further care and follow-up as well as return parameters. Undiagnosed new problem with uncertain prognosis? @ -[No] Drug Therapy requiring intensive monitoring for toxicity (Heparin, Nitro, Insul in, Cardizem)? @ -[No] Were any procedures done? @ -[No] Diagnosis/symptom? @ -[Acute abdominal pain Acute, or Chronic, or Acute on Chronic? @ -[Acute Uncomplicated (without systemic symptoms) or Complicated (systemic symptoms)? @ -[Uncomplicated Side effects of treatment? @ -[No] Exacerbation, Progression, or Severe Exacerbation? @ -[No] Poses a threat to life or bodily function? How? (Chest pain, [place], [place], pneumonia, PE, COPD, DKA, ARF, appy, cholecystitis, CVA, Diverticulitis, Homicidal, Suicidal, threat to staff... and all critical care pts) @ -[No] (Mohan Acharya) - Lab Data Lab Results 01/25/23 01/25/23 01/25/23 Range/Units 18:32 18:32 18:32 WBC 12.0 H (3.8-10.6) k/uL RBC 4.67 (3.80-5.40) m/uL Hgb 15.2 (11.4-16.0) gm/dL Hct 45.1 (34.0-46.0) % MCV 96.6 (80.0-100.0) fL MCH 32.5 (25.0-35.0) pg MCHC 33.6 (31.0-37.0) g/dL RDW 13.1 (11.5-15.5) % Plt Count 138 L (150-450) k/uL MPV 9.1 Neutrophils % 76 % Lymphocytes % 16 % Monocytes % 5 % Eosinophils % 0 % Basophils % 1 % Neutrophils # 9.1 H (1.3-7.7) k/uL Lymphocytes # 2.0 (1.0-4.8) k/uL Monocytes # 0.6 (0-1.0) k/uL Eosinophils # 0.0 (0-0.7) k/uL Basophils # 0.1 (0-0.2) k/uL Sodium 134 L (137-145) mmol/L Potassium 4.1 (3.5-5.1) mmol/L Chloride 96 L (98-107) mmol/L Carbon Dioxide 29 (22-30) mmol/L Anion Gap 9 mmol/L BUN 10 (7-17) mg/dL Creatinine 0.66 (0.52-1.04) mg/dL Est GFR (CKD-EPI)AfAm >90 (>60 ml/min/1.73 sqM) Est GFR (CKD-EPI)NonAf >90 (>60 ml/min/1.73 sqM) Glucose 184 H (74-99) mg/dL Lactic Ac Sepsis Rflx Plasma Lactic Acid Jonathan (0.7-2.0) mmol/L Calcium 9.2 (8.4-10.2) mg/dL Total Bilirubin 1.0 (0.2-1.3) mg/dL AST 65 H (14-36) U/L ALT 63 H (4-34) U/L Alkaline Phosphatase 80 (38-126) U/L Total Protein 7.7 (6.3-8.2) g/dL Albumin 4.0 (3.5-5.0) g/dL Amylase 63 (30-110) U/L Lipase 175 (23-300) U/L Urine Color Dark Yellow Urine Appearance Clear (Clear) Urine pH 6.5 (5.0-8.0) Ur Specific Vanlue 1.015 (1.001-1.035) Urine Protein 3+ H (Negative) Urine Glucose (UA) Negative (Negative) Urine Ketones Negative (Negative) Urine Blood Large H (Negative) Urine Nitrite Negative (Negative) Urine Bilirubin Negative (Negative) Urine Urobilinogen <2.0 (<2.0) mg/dL Ur Leukocyte Esterase Negative (Negative) Urine RBC 40 H (0-5) /hpf Urine WBC 3 (0-5) /hpf Ur Squamous Epith Cells 2 (0-4) /hpf Urine Mucus Few H (None) /hpf Urine Yeast (Budding) Rare H (None) /hpf 01/25/23 01/25/23 01/25/23 Range/Units 18:32 19:13 23:42 WBC (3.8-10.6) k/uL RBC (3.80-5.40) m/uL Hgb (11.4-16.0) gm/dL Hct (34.0-46.0) % MCV (80.0-100.0) fL MCH (25.0-35.0) pg MCHC (31.0-37.0) g/dL RDW (11.5-15.5) % Plt Count (150-450) k/uL MPV Neutrophils % % Lymphocytes % % Monocytes % % Eosinophils % % Basophils % % Neutrophils # (1.3-7.7) k/uL Lymphocytes # (1.0-4.8) k/uL Monocytes # (0-1.0) k/uL Eosinophils # (0-0.7) k/uL Basophils # (0-0.2) k/uL Sodium (137-145) mmol/L Potassium (3.5-5.1) mmol/L Chloride (98-107) mmol/L Carbon Dioxide (22-30) mmol/L Anion Gap mmol/L BUN (7-17) mg/dL Creatinine (0.52-1.04) mg/dL Est GFR (CKD-EPI)AfAm (>60 ml/min/1.73 sqM) Est GFR (CKD-EPI)NonAf (>60 ml/min/1.73 sqM) Glucose (74-99) mg/dL Lactic Ac Sepsis Rflx Y Plasma Lactic Acid Jonathan 2.8 H* 1.4 (0.7-2.0) mmol/L Calcium (8.4-10.2) mg/dL Total Bilirubin (0.2-1.3) mg/dL AST (14-36) U/L ALT (4-34) U/L Alkaline Phosphatase (38-126) U/L Total Protein (6.3-8.2) g/dL Albumin (3.5-5.0) g/dL Amylase (30-110) U/L Lipase (23-300) U/L Urine Color Urine Appearance (Clear) Urine pH (5.0-8.0) Ur Specific Vanlue (1.001-1.035) Urine Protein (Negative) Urine Glucose (UA) (Negative) Urine Ketones (Negative) Urine Blood (Negative) Urine Nitrite (Negative) Urine Bilirubin (Negative) Urine Urobilinogen (<2.0) mg/dL Ur Leukocyte Esterase (Negative) Urine RBC (0-5) /hpf Urine WBC (0-5) /hpf Ur Squamous Epith Cells (0-4) /hpf Urine Mucus (None) /hpf Urine Yeast (Budding) (None) /hpf Disposition <Tanya Rosen - Last Filed: 01/25/23 18:11> Is patient prescribed a controlled substance at d/c from ED?: No <Mohan Acharya - Last Filed: 02/03/23 07:31> Clinical Impression: Abdominal pain Disposition: HOME SELF-CARE Condition: Good Instructions (If sedation given, give patient instructions): Abdominal Pain (ED ) Prescriptions: Famotidine [Pepcid] 20 mg PO BID #14 tablet Referrals: None,Stated [Primary Care Provider] - 1-2 days Kiera Mckeon MD [STAFF PHYSICIAN] - 1-2 days
[2023-01-25 18:45] LABS: Basophils # (A) 0.1 k/uL (0-0.2); Basophils % (A) 1 %; Eosinophils % (A) 0 %; HCT 45.1 % (34.0-46.0); HGB 15.2 gm/dL (11.4-16.0); Lymphocytes % (A) 16 %; MCH 32.5 pg (25.0-35.0); MCHC 33.6 g/dL (31.0-37.0); MCV 96.6 fL (80.0-100.0); Mean Platelet Volume 9.1; Monocytes # (A) 0.6 k/uL (0-1.0); Monocytes % (A) 5 %; Neutrophils # (A) 9.1 k/uL (1.3-7.7); Neutrophils % (A) 76 %; Platelet Count 138 k/uL (150-450); RBC 4.67 m/uL (3.80-5.40); RDW 13.1 % (11.5-15.5)
[2023-01-25 19:01] LABS: ALT 63 U/L (4-34); AST 65 U/L (14-36); African American GFR (CKD) >90 (>60 ml/min/1.73 sqM); Alkaline Phosphatase 80 U/L (38-126); Amylase 63 U/L (30-110); Anion Gap 9 mmol/L; Blood Urea Nitrogen 10 mg/dL (7-17); Calcium 9.2 mg/dL (8.4-10.2); Carbon Dioxide 29 mmol/L (22-30); Chloride 96 mmol/L (98-107); Glucose 184 mg/dL (74-99); Lipase 175 U/L (23-300); Non-African American GFR(CKD) >90 (>60 ml/min/1.73 sqM); Potassium 4.1 mmol/L (3.5-5.1); Sodium 134 mmol/L (137-145); Total Protein 7.7 g/dL (6.3-8.2)
[2023-01-25 19:12] LABS: Color,Urine Dark Yellow
[2023-01-25 19:13] LABS: Appearance,Urine Clear (Clear); Bilirubin,Urine Negative (Negative); Blood,Urine Large (Negative); Glucose,Urine (UA) Negative (Negative); Ketones,Urine Negative (Negative); Leukocyte Esterase,Urine Negative (Negative); Nitrite,Urine Negative (Negative); PH, Urine 6.5 (5.0-8.0); Protein,Urine 3+ (Negative); Specific Gravity,Urine 1.015 (1.001-1.035); Urobilinogen,Urine <2.0 mg/dL (<2.0)
[2023-01-25 19:19] LABS: Budding Yeast,Urine Rare /hpf; Mucus,Urine Few /hpf; RBC,Urine 40 /hpf (0-5); Squamous Epithelial Cell,Urine 2 /hpf (0-4); WBC,Urine 3 /hpf (0-5)
[2023-01-25] MEDS ORDERED: SODIUM CHLORIDE 0.9% 1,000 ML IV ONE (22:34)
[2023-01-25] MEDS ORDERED: MORPHINE SULFATE 4 MG/ML SYRINGE IV STA (22:39)
--- NOTE | 2023-01-25 23:02 | CT ---
EXAMINATION TYPE: CT abdomen pelvis w con CT DLP: 1311.5 mGycm, Automated exposure control for dose reduction was used. DATE OF EXAM: 01/25/2023 7:35 PM COMPARISON: CT chest abdomen pelvis 06/03/2019 CLINICAL INDICATION:Female, 62 years old with history of abdominal pain; ABDOMINAL PAIN AND BLOATING XFEW WEEKS. TECHNIQUE: Axial CT of the abdomen and pelvis. Sagittal and coronal reformats were created on a [employer] workstation. Contrast used:100 mL of Isovue 300 with IV Contrast, (none if empty) Oral contrast used: without Oral Contrast (none if empty) FINDINGS: LOWER CHEST: Partially seen right breast implant. Mild scarring in the right middle lobe. No lung inf iltrate or pleural effusion. Heart size is within normal limits. No pericardial effusion. ABDOMEN LIVER: Question slightly scalloped margin of the liver, early cirrhosis is possible. No evidence of f ocal mass. Portal veins are enhancing. GALLBLADDER AND BILE DUCTS: Unremarkable. PANCREAS: No acute finding. SPLEEN: Unremarkable. ADRENAL GLANDS: Slightly thickened, left more than right, could be due to hyperplasia.. KIDNEYS AND URETERS: Kidneys enhance symmetrically. No visible calculi or hydronephrosis. There is a small low-density nodule suggesting a cyst in the lower pole of the left kidney. PELVIS BLADDER: Incompletely distended but grossly unremarkable. REPRODUCTIVE: Uterus and ovaries have an unremarkable appearance however not well assessed by CT. The re is a curvilinear radiodensity on the right, which could be calcification versus postoperative camacho ge; correlate with surgical history. Multiple pelvic phleboliths again noted. ABDOMEN & PELVIS STOMACH AND BOWEL: Stomach and small bowel are nondistended. There is a pair of fat attenuation nodul es associated with the duodenal sweep suggesting lipomas, the largest 23 x 14 mm. No evidence of obs truction. The appendix appears within normal limits. There is fatty infiltration of the ileocecal ajay ve. Mild/moderate stool throughout the colon without evidence of obstruction. There are a few colonic diverticula seen, without definite evidence of diverticulitis. PERITONEUM/RETROPERITONEUM: No evidence of pneumoperitoneum or free fluid. VASCULATURE: Moderate atherosclerotic calcification throughout the abdominal aorta and branches. No e vidence of AAA. Retroaortic left renal vein noted. MUSCULOSKELETAL: Moderate degenerative changes of the spine including posterior bulging disc with anuradha cified margin at the T12-L1 level which causes mild to moderate encroachment on the spinal canal, sim ilar to previous.. No evidence of acute bony pathology. LYMPH NODES: No gross evidence for lymphadenopathy. SOFT TISSUE/ABDOMINAL WALL: Tiny fat-containing umbilical hernia. IMPRESSION: No evidence of an acute obstructive or inflammatory process. Other stable chronic and likely incidental findings as above.
[2023-01-25 23:14] VITALS: TEMP 98
[2023-01-26] MEDS ORDERED: MORPHINE SULFATE 4 MG/ML SYRINGE IV STA (01:35)
[2023-01-26] MEDS ORDERED: MAG HYDROX/AL HYDROX/SIMETH 30 ML, HYOSCYAMINE ELIXIR 10 ML, LIDOCAINE 2% GLYDO JELLY 1... PO STA ×3 (01:35)
[2023-01-26 01:55] VITALS: BP 144/95; PULSE 72; RESP 18
== END 2023-01-26 01:54 | disposition home or self-care (01) ==
LOC: EC 16:13
DX: R10.9 Unspecified abdominal pain (principal); F12.90 Cannabis use, unspecified, uncomplicated; F17.200 Nicotine dependence, unspecified, uncomplicated; Z86.59 Personal history of other mental and behavioral disorders
CPT/HCPCS: 99284; 96374; 96361 ×3; 96376; 36415; 80053; 82150; 83605; 83690; 85025; 81001; 74177; J2270 ×2; Q9967